=== PATIENT | female | born 1995 | race Caucasian/White ===

== ENCOUNTER 2021-04-09 19:49 | Emergency (ER) | payer BC ==
[~2021-04-09] VITALS: Ht 167.6 cm; Wt 99.8 kg
[2021-04-09 20:26] VITALS: BP 129/95
[2021-04-09] MEDS ORDERED: IBUPROFEN 600 MG TABLET PO ONE (20:30)
[2021-04-09] MEDS ORDERED: IBUP-1955 PO (20:32)
[2021-04-09] MEDS ORDERED: CYCL10TA9 PO (20:32)
[2021-04-09] MEDS ORDERED: IBUPROFEN 600 MG TABLET ONE (20:36)
--- NOTE | 2021-04-09 20:50 | NUR ---
Patient discharged to home in stable condition. Written and verbal after care instructions given. Patient verbalizes understanding of instruction. Pt ambulatory with a steady gait
== END 2021-04-09 20:51 | disposition home or self-care (01) ==
LOC: ER 19:49
DX: S46.812A Strain of other muscles, fascia and tendons at shoulder and upper arm level, left arm, initial encounter (principal); S16.1XXA Strain of muscle, fascia and tendon at neck level, initial encounter; G43.909 Migraine, unspecified, not intractable, without status migrainosus; Z79.899 Other long term (current) drug therapy; X58.XXXA Exposure to other specified factors, initial encounter; Y93.89 Activity, other specified; Y92.89 Other specified places as the place of occurrence of the external cause; Y99.8 Other external cause status